=== PATIENT | male | born 1995 | race Caucasian/White ===

== ENCOUNTER 2018-09-23 13:37 | Emergency (ER) | payer OTHER, SELFPAY ==
[2018-09-23 13:45] VITALS: BP 129/87; PULSE 64; RESP 15; TEMP 37; O2SAT 98; BMI 23.6
--- NOTE | 2018-09-23 13:47 | DI.RAD.S_ITS ---
PROCEDURE: XR KNEE RT 3V INDICATIONS: pt states knee popped out earlier TECHNIQUE: 3 views of the knee were acquired. COMPARISON: None. FINDINGS: Bones: No fractures or dislocations. No suspicious bony lesions. There appear to be postsurgical changes of the knee, suggesting previous ACL reconstruction. Soft tissues: No joint effusion. No suspicious soft tissue calcifications. IMPRESSION: 1. No acute fracture of the right knee. 2. Probable prior ACL reconstruction. Dictated by: Marquez Song M.D. on 09/23/2018 at 13:05 Approved by: Marquez Song M.D. on 09/23/2018 at 13:20
--- NOTE | 2018-09-23 15:24 | ED.EXTPRO ---
HPI - Extremity Problem <Cindi Aj PA-C - Last Filed: 09/23/18 21:44> General Chief complaint: Extremity Problem,Nontraumatic Stated complaint: RT keeps popping out/recontruct. surgery Time Seen by Provider: 09/23/18 14:22 Source: patient Mode of arrival: ambulatory Limitations: no limitations History of Present Illness HPI Narrative: This 23-year-old male comes in due to acute worsening of his chronic right knee weakness and pain. He states that he had ACL/PCL/meniscus repair in 2009. Finished therapy and did well for about 10 months, but since then he has had intermittent buckling and pain in the knee while walking. He states this can happen on any surface. He has followed up with primary care and no further treatment advised. Today, he states he was walking along and the knee buckled and was acutely painful and he felt a pop. He states pain is better now that he is off of his knee, a little bit tingly. He states that he avoids medications and has not taken NSAIDs. He denies any new features, just that this is worse than usual with the instability. He denies any pain in the hip or ankle or any other new complaints on systems review. Related Data Allergies Allergy/AdvReac Type Severity Reaction Status Date / Time No Known Drug Allergies Allergy Verified 09/23/18 13:45 Review of Systems <Cindi Aj PA-C - Last Filed: 09/23/18 21:44> Review of Systems ROS Unobtainable: All systems reviewed & are unremarkable except as noted in HPI and below PFSH <Cindi Aj PA-C - Last Filed: 09/23/18 21:44> Medical History (Updated 09/23/18 @ 15:50 by Cindi Aj PA-C) Chronic knee pain (Chronic) Chronic thoracic back pain (Chronic) Surgical History (Updated 09/23/18 @ 15:40 by Cindi Aj PA-C) History of meniscectomy of right knee (Resolved) Status post anterior cruciate ligament surgery (Resolved) Tear of PCL (posterior cruciate ligament) of knee (Resolved) Social History (Updated 09/23/18 @ 15:41 by Cindi Aj PA-C) Smoking Status: Never smoker Social History (Updated 09/23/18 @ 15:41 by Cindi Aj PA-C) Smoking Status: Never smoker Exam <Cindi Aj PA-C - Last Filed: 09/23/18 21:44> Narrative Exam Narrative: GENERAL APPEARANCE: Patient sitting comfortably, in no distress. LUNGS: Clear to auscultation bilaterally. HEART: Rate and rhythm regular without murmur, normal S1 and S2, no S3 or S4. MUSCULOSKELETAL: Right knee mild effusion, no joint line tenderness or patellar tenderness. no patellar misalignment. Full active and passive range of motion with some palpable crepitus. No laxity on anterior/posterior drawer testing, unable to assess varus/valgus stress secondary to discomfort EXTREMITIES: Warm and pink, no pedal edema Initial Vital Signs Initial Vital Signs: Vital Signs Temperature 98.6 F 09/23/18 13:45 Pulse Rate 64 09/23/18 13:45 Respiratory Rate 15 09/23/18 13:45 Blood Pressure 129/87 09/23/18 13:45 Pulse Oximetry 98 09/23/18 13:45 <DO Cody Kowalski Last Filed: 09/25/18 08:32> Initial Vital Signs Initial Vital Signs: Vital Signs Temperature 98.6 F 09/23/18 13:45 Pulse Rate 64 09/23/18 13:45 Respiratory Rate 15 09/23/18 13:45 Blood Pressure 129/87 09/23/18 13:45 Pulse Oximetry 98 09/23/18 13:45 Course <EVERETT Frausto Last Filed: 09/23/18 21:44> Orders Ordered: ED Orders 09/23/18 13:47 XR knee RT 3V Stat Vital Signs - 8 hr 09/23/18 13:45 Temperature 98.6 F Pulse Rate 64 Respiratory Rate 15 Blood Pressure 129/87 Pulse Oximetry 98 <DO Cody Kowalski Last Filed: 09/25/18 08:32> Orders Ordered: ED Orders 09/23/18 13:47 XR knee RT 3V Stat Vital Signs - 8 hr 09/23/18 13:45 Temperature 98.6 F Pulse Rate 64 Respiratory Rate 15 Blood Pressure 129/87 Pulse Oximetry 98 MDM - Extremity (Nontraumatic) <EVERETT Frausto Last Filed: 09/23/18 21:44> Imaging Data knee: Radiologist's impression: [address] [address] XRay Report Signed Patient: Cameron Beal IIMR#: [id number] : 1995Acct:[id number] Age/Sex: 23 / MDate of Service: 09/23/18 Loc: ED Accession Number: [id number] Procedure: XR knee RT 3V Ordering Provider: Radhika Fountain D.O. PROCEDURE: XR KNEE RT 3V INDICATIONS: pt states knee popped out earlier TECHNIQUE: 3 views of the knee were acquired. COMPARISON: None. FINDINGS: Bones: No fractures or dislocations. No suspicious bony lesions. There appear to be postsurgical changes of the knee, suggesting previous ACL reconstruction. Soft tissues: No joint effusion. No suspicious soft tissue calcifications. IMPRESSION: 1. No acute fracture of the right knee. 2. Probable prior ACL reconstruction. Dictated by: Marquez Song M.D. on 09/23/2018 at 13:05 Approved by: Marquez Song M.D. on 09/23/2018 at 13:20 Discharge Plan Departure Patient Disposition: Home Clinical Impression: Internal derangement of knee Qualifiers: Laterality: right Qualified Code(s): M23.91 - Unspecified internal derangement of right knee Discharge Date/Time: 09/23/18 16:05 Interventions: ED Discharge Assessment Last Done: 09/23/18 16:05 Instructions: DI for Meniscal Tear Activity Restrictions/Additional Instructions: I am not able to fully examine you today, which is typical with acute knee problems, however I am suspicious based on the history that you have given me that you may have another meniscal tear, it is not clear whether you have any other torn ligaments as well. please wear the knee brace that we gave you whenever you are bearing weight to help with stability. Please take an [id number] anti-inflammatory such as Aleve or ibuprofen to help with pain as needed. [place] You can call at [facility] and let them know you were seen in the emergency room and we have recommended follow-up for your knee problems and they can set you up with an appointment. Please return to the ED if you have any acutely worsening symptoms in the interim Thank you for your service Referrals: [facility] [Provider Group] <Radhika Fountain, DO - Last Filed: 09/25/18 08:32> Cosign ED Attending Marguerite Attestation: I was immediately available in the department for consultation. Documentation has been reviewed. I agree with assessment and plan.
--- NOTE | 2018-09-23 15:27 | ED_ITS ---
HPI - Extremity Problem <Cindi Aj PA-C - Last Filed: 09/23/18 21:44> General Chief complaint: Extremity Problem,Nontraumatic Stated complaint: RT keeps popping out/recontruct. surgery Time Seen by Provider: 09/23/18 14:22 Source: patient Mode of arrival: ambulatory Limitations: no limitations History of Present Illness HPI Narrative: This 23-year-old male comes in due to acute worsening of his chronic right knee weakness and pain. He states that he had ACL/PCL/meniscus repair in 2009. Finished therapy and did well for about 10 months, but since then he has had intermittent buckling and pain in the knee while walking. He states this can happen on any surface. He has followed up with primary care and no further treatment advised. Today, he states he was walking along and the knee buckled and was acutely painful and he felt a pop. He states pain is better now that he is off of his knee, a little bit tingly. He states that he avoids medications and has not taken NSAIDs. He denies any new features, just that this is worse than usual with the instability. He denies any pain in the hip or ankle or any other new complaints on systems review. Related Data Allergies Allergy/AdvReac Type Severity Reaction Status Date / Time No Known Drug Allergies Allergy Verified 09/23/18 13:45 Review of Systems <Cindi Aj PA-C - Last Filed: 09/23/18 21:44> Review of Systems ROS Unobtainable: All systems reviewed & are unremarkable except as noted in HPI and below PFSH <Cindi Aj PA-C - Last Filed: 09/23/18 21:44> Medical History (Updated 09/23/18 @ 15:50 by Cindi Aj PA-C) Chronic knee pain (Chronic) Chronic thoracic back pain (Chronic) Surgical History (Updated 09/23/18 @ 15:40 by Cindi Aj PA-C) History of meniscectomy of right knee (Resolved) Status post anterior cruciate ligament surgery (Resolved) Tear of PCL (posterior cruciate ligament) of knee (Resolved) Social History (Updated 09/23/18 @ 15:41 by Cindi Aj PA-C) Smoking Status: Never smoker Social History (Updated 09/23/18 @ 15:41 by Cindi Aj PA-C) Smoking Status: Never smoker Exam <Cindi Aj PA-C - Last Filed: 09/23/18 21:44> Narrative Exam Narrative: GENERAL APPEARANCE: Patient sitting comfortably, in no distress. LUNGS: Clear to auscultation bilaterally. HEART: Rate and rhythm regular without murmur, normal S1 and S2, no S3 or S4. MUSCULOSKELETAL: Right knee mild effusion, no joint line tenderness or patellar tenderness. no patellar misalignment. Full active and passive range of motion with some palpable crepitus. No laxity on anterior/posterior drawer testing, unable to assess varus/valgus stress secondary to discomfort EXTREMITIES: Warm and pink, no pedal edema Initial Vital Signs Initial Vital Signs: Vital Signs Temperature 98.6 F 09/23/18 13:45 Pulse Rate 64 09/23/18 13:45 Respiratory Rate 15 09/23/18 13:45 Blood Pressure 129/87 09/23/18 13:45 Pulse Oximetry 98 09/23/18 13:45 <DO Cody Kowalski Last Filed: 09/25/18 08:32> Initial Vital Signs Initial Vital Signs: Vital Signs Temperature 98.6 F 09/23/18 13:45 Pulse Rate 64 09/23/18 13:45 Respiratory Rate 15 09/23/18 13:45 Blood Pressure 129/87 09/23/18 13:45 Pulse Oximetry 98 09/23/18 13:45 Course <EVERETT Frausto Last Filed: 09/23/18 21:44> Orders Ordered: ED Orders 09/23/18 13:47 XR knee RT 3V Stat Vital Signs - 8 hr 09/23/18 13:45 Temperature 98.6 F Pulse Rate 64 Respiratory Rate 15 Blood Pressure 129/87 Pulse Oximetry 98 <DO Cody Kowalski Last Filed: 09/25/18 08:32> Orders Ordered: ED Orders 09/23/18 13:47 XR knee RT 3V Stat Vital Signs - 8 hr 09/23/18 13:45 Temperature 98.6 F Pulse Rate 64 Respiratory Rate 15 Blood Pressure 129/87 Pulse Oximetry 98 MDM - Extremity (Nontraumatic) <EVERETT Frausto Last Filed: 09/23/18 21:44> Imaging Data knee: Radiologist's impression: [address] [address] XRay Report Signed Patient: Cameron Beal IIMR#: [id number] : 1995Acct:[id number] Age/Sex: 23 / MDate of Service: 09/23/18 Loc: ED Accession Number: [id number] Procedure: XR knee RT 3V Ordering Provider: Radhika Fountain D.O. PROCEDURE: XR KNEE RT 3V INDICATIONS: pt states knee popped out earlier TECHNIQUE: 3 views of the knee were acquired. COMPARISON: None. FINDINGS: Bones: No fractures or dislocations. No suspicious bony lesions. There appear to be postsurgical changes of the knee, suggesting previous ACL reconstruction. Soft tissues: No joint effusion. No suspicious soft tissue calcifications. IMPRESSION: 1. No acute fracture of the right knee. 2. Probable prior ACL reconstruction. Dictated by: Marquez Song M.D. on 09/23/2018 at 13:05 Approved by: Marquez Song M.D. on 09/23/2018 at 13:20 Discharge Plan Departure Patient Disposition: Home Clinical Impression: Internal derangement of knee Qualifiers: Laterality: right Qualified Code(s): M23.91 - Unspecified internal derangement of right knee Discharge Date/Time: 09/23/18 16:05 Interventions: ED Discharge Assessment Last Done: 09/23/18 16:05 Instructions: DI for Meniscal Tear Activity Restrictions/Additional Instructions: I am not able to fully examine you today, which is typical with acute knee problems, however I am suspicious based on the history that you have given me that you may have another meniscal tear, it is not clear whether you have any other torn ligaments as well. please wear the knee brace that we gave you whenever you are bearing weight to help with stability. Please take an [id number] anti-inflammatory such as Aleve or ibuprofen to help with pain as needed. We [place]. You can call at [facility] and let them know you were seen in the emergency room and we have recommended follow-up for your knee problems and they can set you up with an appointment. Please return to the ED if you have any acutely worsening symptoms in the interim Thank you for your service Referrals: [facility] [Provider Group] <Radhika Fountain, DO - Last Filed: 09/25/18 08:32> Cosign ED Attending Marguerite Attestation: I was immediately available in the department for consultation. Documentation has been reviewed. I agree with assessment and plan.
== END 2018-09-23 16:05 | disposition home or self-care (01) ==
PROVIDERS: Emergency Provider Internal Medicine
DX: M23.91 Unspecified internal derangement of right knee (principal)
CPT/HCPCS: 73562; 99283